=== PATIENT | female | born 1940 | race Caucasian/White ===

== ENCOUNTER 2017-12-15 05:46 | Day surgery (SDC) | payer OTHER ==
[~2017-12-15 05:46] MED LIST: LOVAZA1 GM PO; SYNTHROID50 MCG PO; VALSARTAN80 MG PO
== END 2017-12-15 11:10 | disposition home or self-care (01) ==
LOC: CIR.AMB 05:46
DX: R15.9 Full incontinence of feces (principal)
CPT/HCPCS: 64581; C1778

== ENCOUNTER 2018-01-03 11:54 | Day surgery (SDC) | payer OTHER ==
[~2018-01-03 11:54] MED LIST changes: +LOVAZA PO; +PROTONIX40 MG PO; +ZANTAC300 MG PO
== END 2018-01-03 17:03 | disposition home or self-care (01) ==
LOC: CIR.AMB 11:54
DX: R15.9 Full incontinence of feces (principal)
CPT/HCPCS: 64590; C1767

== ENCOUNTER → 2018-08-01 | Day surgery (SDC) | payer OTHER ==
[~2018-08-01] MED LIST changes: +COZAAR50 MG PO; +RANITIDINE HCL150 M1 PO
== END | disposition home or self-care (01) ==
LOC: ADM 07-30 14:00 → CIR.AMB 05:55 → AMB-ENDOS 14:00
DX: T83.110A Breakdown (mechanical) of urinary electronic stimulator device, initial encounter (principal); T85.111A Breakdown (mechanical) of implanted electronic neurostimulator of peripheral nerve electrode (lead), initial encounter; R15.9 Full incontinence of feces
CPT/HCPCS: 64590; 64581; 95972; C1767; C1778

== ENCOUNTER 2018-10-19 05:26 | Day surgery (SDC) | payer OTHER | END 2018-10-19 11:10 | disposition home or self-care (01) | LOC: CIR.AMB 05:26 | DX: R15.9 Full incontinence of feces (principal); T85.111A Breakdown (mechanical) of implanted electronic neurostimulator of peripheral nerve electrode (lead), initial encounter; T85.732A Infection and inflammatory reaction due to implanted electronic neurostimulator of peripheral nerve, electrode (lead), initial encounter ==